=== PATIENT | female | born 1955 | race Hispanic/Latino ===

== ENCOUNTER 2016-10-31 04:00 | Emergency (ER) | payer BC, OTHER ==
[2016-10-31] MEDS ORDERED: MORPHINE IV ONE ×2 (04:46→07:19)
[2016-10-31] MEDS ORDERED: ZOFRAN IV ONE ×2 (04:47→07:19)
[2016-10-31 05:34] LABS: Bilirubin,Urine NEG (Negative); Blood,Urine NEG (Negative); Ketones,Urine NEG (Negative); Leukocyte Esterase,Urine TR (Negative); Mucus,Urine 2+ /HPF; Nitrite,Urine NEG (Negative); Protein,Urine <15 mg/dL mg/dL (Negative); Urobilinogen,Urine < 2.0 mg/dL (<2.0)
[2016-10-31 05:42] LABS: Basophils % (Auto) 0.1 % (0.0-1.8); Eosinophils % (Auto) 0.3 % (0.0-4.3); Hematocrit 46.2 % (30.3-42.9); Hemoglobin 15.3 gm/dl (10.1-14.3); Mean Corpuscular HGB Conc 33 % (30-34); Mean Corpuscular Hemoglobin 30 pg (28-32); Mean Corpuscular Volume 90 fl (79-97); Platelet Count 230 K/mm3 (140-440); Red Blood Count 5.12 M/mm3 (3.65-5.03); Red Cell Distribution Width 13.6 % (13.2-15.2); White Blood Count 14.5 K/mm3 (4.5-11.0)
[2016-10-31 05:43] LABS: Albumin 4.3 g/dL (3.9-5); Albumin/Globulin Ratio 1.3 %; BUN/Creatinine Ratio 22.72; Bilirubin,Total 0.5 mg/dL (0.1-1.2); Calcium 9.6 mg/dL (8.4-10.2); Chloride 102.2 mmol/L (98-107); Potassium 5.6 mmol/L (3.6-5.0); Total Protein 7.6 g/dL (6.3-8.2)
[2016-10-31] MEDS ORDERED: KIONEX PO ONE (07:01)
[2016-10-31] MEDS ORDERED: NACL 0.9% 1000 ML 1,000 ML IV ONE (07:01)
--- NOTE | 2016-10-31 07:35 | Emergency Department Report ---
HPI - General Chief Complaint: Abdominal Pain Time Seen by Provider: 10/31/16 06:50 - HPI HPI: The patient is a 60-year-old female who presents for evaluation of abdominal pain. The patient reports epigastric abdominal pain since 10 AM yesterday morning, nearly 24 hours prior to my evaluation. She states that her pain has been constant since onset, 8/10 in severity, cramping and at times pressure- like in quality, exacerbated with retching. She reports associated nausea and multiple episodes of nonbilious, nonbloody emesis. The patient denies fever, blood trauma to the abdomen, diarrhea, blood in the stool, dark tarry stool, dysuria, hematuria, flank pain, genital discharge, vaginal bleeding, inability to pass flatus. ED Past Medical Hx - Past Medical History Hx Hypertension: No Hx CVA: No Hx Heart Attack/AMI: No Hx Congestive Heart Failure: No Hx Diabetes: No Hx Deep Vein Thrombosis: No Hx Pulmonary Embolism: No Hx GERD: No Hx Liver Disease: No Hx Renal Disease: No Hx of Cancer: No Hx Sickle Cell Disease: No Hx Arthritis: Yes Hx Headaches / Migraines: No Hx Seizures: No Hx Kidney Stones: No Hx Psychiatric Treatment: No Hx Asthma: No Hx COPD: No Hx Tuberculosis: No Hx Dementia: No Hx HIV: No Additional medical history: MVP. Colonic inertia. SMALL BOWEL OBSTRUCTION - Surgical History Hx Internal Defibrillator: No Hx Cholecystectomy: Yes Additional Surgical History: Subtotal colectomy 2008. HYSTERECTOMY. SMALL BOWEL OBSTRUCTIONS SURGERY X 2. CERVICAL FUSION, KNEE Surgeries, Tonsilectomy, Colonoscopy - Social History Smoking Status: Former Smoker Substance Use Type: None - Medications Home Medications: Home Medications Medication Instructions Recorded Confirmed Last Taken Type Amitriptyline [Elavil] 40 gm PO DAILY 06/13/14 08/31/14 08/30/14 History Metoprolol [Lopressor TAB] 50 mg PO DAILY 06/13/14 08/31/14 08/30/14 History Simvastatin [Simvastatin] 40 mg PO QHS 07/16/14 08/31/14 07/15/14 History HYDROcodone/APAP 7.5-325 [[place] 1 each PO Q8HR PRN #20 tablet 10/31/16 Unknown Rx 7.5-325 mg TAB] Ondansetron [Zofran TAB] 4 mg PO Q8HR PRN #20 tablet 10/31/16 Unknown Rx Polyethylene Glycol/Elect 4,000 ml PO ONCE PRN #1 bottle 10/31/16 Unknown Rx [Golytely] ED Review of Systems ROS: Stated complaint: ABDOMINAL PAIN Other details as noted in HPI Constitutional: denies: fever ENT: denies: throat or neck pain Respiratory: denies: cough, shortness of breath Cardiovascular: denies: chest pain Endocrine: denies unexplained weight loss or gain Gastrointestinal: reports abdominal pain, nausea Genitourinary: denies: dysuria Musculoskeletal: denies: leg swelling Skin: denies: rash Neurological: denies: headache Hematological/Lymphatic: denies: easy bleeding or easy bruising Psych: denies sadness or hopelessness Physical Exam - Physical Exam Vital Signs: Vital Signs 10/31/16 10/31/16 10/31/16 04:00 04:12 04:16 Temperature 99.6 F 99.6 F Pulse Rate 102 H 102 H Respiratory 20 18 Rate Blood Pressure 117/77 117/77 Blood Pressure 117/77 [Left] O2 Sat by Pulse 98 98 Oximetry 10/31/16 04:37 Temperature Pulse Rate Respiratory 18 Rate Blood Pressure Blood Pressure [Left] O2 Sat by Pulse 98 Oximetry Physical Exam: General: well-nourished, well-developed, no acute distress Head: Normocephalic, atraumatic Eyes: normal sclera ENT: Mucous membranes are pale and dry Neck: trachea midline, neck supple, No neck stiffness, no cervical adenopathy Respiratory: Breath sounds equal bilaterally, no wheezing, rales, or rhonchi Cardio: S1 and S2 present, no murmurs, rubs, gallops, capillary refill is brisk Abdomen: No distention, Normoactive bowel sounds, soft abdomen, epigastric tenderness to palpation present, no rigidity, no guarding or rebound tenderness Chest WALL/Back: No tenderness to palpation of the chest wall, no CVA tenderness with percussion Musc: No pitting edema Skin: No rash Neuro: no facial drooping, normal speech Psych: Normal affect ED Course Vital Signs 10/31/16 10/31/16 10/31/16 04:00 04:12 04:16 Temperature 99.6 F 99.6 F Pulse Rate 102 H 102 H Respiratory 20 18 Rate Blood Pressure 117/77 117/77 Blood Pressure 117/77 [Left] O2 Sat by Pulse 98 98 Oximetry 10/31/16 04:37 Temperature Pulse Rate Respiratory 18 Rate Blood Pressure Blood Pressure [Left] O2 Sat by Pulse 98 Oximetry ED Medical Decision Making - Lab Data Result diagrams: 10/31/16 04:51 10/31/16 04:51 - Medical Decision Making The patient was seen and examined by myself. The patient is placed on a community recreation coordinator and continuous pulse ox. On initial evaluation, the patient was found to be in no distress. Evaluation orders were placed. The patient is given 1 L normal saline fluid bolus for treatment of dehydration, IV Zofran for nausea, and IV morphine for her pain. Lab results reveal elevated RBC, hemoglobin, and hematocrit, consistent with hemoconcentration and exam findings of dehydration, and otherwise labs were grossly unrevealing. CT scan abdomen and pelvis with IV and oral contrast exhibits chronically dilated sigmoid colon, also present on comparison CT scan over 2 years ago. Additionally the CT scan today was negative for small bowel dilation, ascites, bowel perforation, appendicitis, or abscess. The patient was reevaluated and reported that her symptoms were markedly improved and nausea and vomiting were resolved. She states that she feels back to her normal baseline and would like to be discharged home. The patient's tachycardia has also resolved and heart rate is now 90. The patient is stable for discharge with outpatient follow-up. The patient is given follow-up and return instructions. The patient expressed understanding and agreed with the plan. The patient is discharged in stable condition. Critical care attestation.: If time is entered above; I have spent that time in minutes in the direct care of this critically ill patient, excluding procedure time. ED Disposition Clinical Impression: Abdominal pain, acute, epigastric, Dehydration, mild, Nausea and vomiting in adult, Acute hyperkalemia Disposition: - TO HOME OR SELFCARE Is pt being admited?: No Does the pt Need Aspirin: No Condition: Stable Instructions: Abdominal Pain (ED), Acute Nausea and Vomiting (ED), Dehydration (ED) Prescriptions: HYDROcodone/APAP 7.5-325 [[place] 7.5-325 mg TAB] 1 each PO Q8HR PRN #20 tablet PRN Reason: Pain Ondansetron [Zofran TAB] 4 mg PO Q8HR PRN #20 tablet PRN Reason: Nausea Polyethylene Glycol/Elect [Golytely] 4,000 ml PO ONCE PRN #1 bottle PRN Reason: Constipation Referrals: KIERRA CLEARY MD [Primary Care Provider] - 3-5 Days RAFA MART MD [Staff Physician] - 3-5 Days Time of Disposition: 12:59
[2016-10-31 08:48] VITALS: BP 117/70
[2016-10-31] MEDS ORDERED: NACL ONE (10:25)
[2016-10-31] MEDS ORDERED: KIONEX ONE (11:13)
--- NOTE | 2016-10-31 11:18 | Cat Scan Report ---
CT scan of abdomen and pelvis with IV contrast: Compared to 08/31/14. History: Abdominal pain. Findings: Normal lung bases. No pleural or pericardial effusion. Normal liver spleen pancreas. Patient status post cholecystectomy. Dilated common bile duct measuring 1.1 cm. No intrahepatic duct dilatation. Normal adrenals kidneys and bladder. No free intraperitoneal fluid or air. No evidence of adenopathy. Atherosclerotic abdominal aorta without aneurysm. Fecal impaction in rectum with dilated sigmoid with air. No evidence of appendicitis or diverticulitis. Impression: No significant interval change in dilated sigmoid compared to previous study suggestive of chronic changes. No dilatation of small bowel. Fecal impaction in rectum.
== END 2016-10-31 14:27 | disposition home or self-care (01) ==
LOC: ED 04:00
DX: E87.5 Hyperkalemia (principal); E86.0 Dehydration; R11.2 Nausea with vomiting, unspecified; R10.13 Epigastric pain; M19.90 Unspecified osteoarthritis, unspecified site; Z90.49 Acquired absence of other specified parts of digestive tract; Z90.710 Acquired absence of both cervix and uterus; Z87.891 Personal history of nicotine dependence
CPT/HCPCS: 36415; 74177; 80053; 81001; 83690; 85025; 96361; 96374; 96375; 96376; 99285; J2270; J2405; J7030; Q9967

== ENCOUNTER 2017-01-03 13:53 | Emergency (ER) | payer OTHER ==
[2017-01-03 14:38] LABS: Basophils % (Auto) 0.6 % (0.0-1.8); Eosinophils % (Auto) 2.6 % (0.0-4.3); Hematocrit 41.4 % (30.3-42.9); Hemoglobin 13.6 gm/dl (10.1-14.3); Mean Corpuscular HGB Conc 33 % (30-34); Mean Corpuscular Hemoglobin 29 pg (28-32); Mean Corpuscular Volume 90 fl (79-97); Platelet Count 228 K/mm3 (140-440); Red Blood Count 4.62 M/mm3 (3.65-5.03); Red Cell Distribution Width 13.5 % (13.2-15.2); White Blood Count 7.9 K/mm3 (4.5-11.0)
[2017-01-03 15:18] LABS: Anion Gap 19 mmol/L; BUN/Creatinine Ratio 17.77; Blood Urea Nitrogen 16 mg/dL (7-17); Calcium 9.6 mg/dL (8.4-10.2); Carbon Dioxide 25 mmol/L (22-30); Glucose 92 mg/dL (65-100); Potassium 5.3 mmol/L (3.6-5.0); Sodium 139 mmol/L (137-145)
--- NOTE | 2017-01-03 20:08 | Emergency Department Report ---
HPI - General Chief Complaint: Dizziness Time Seen by Provider: 01/03/17 19:49 - HPI HPI: Room 7 The pt is a 61 y/o F p/w a cc of hypotension, syncope. The pt states she was taken off of her BP meds one year ago 2/2 hypotension. The pt states shes noticed her blood pressure has been running low intermittently since 12/06/16. The pt states approx 3 weeks ago she had a syncopal episode twice in the same day. Pt states she didnt go to the hospital after the events. The pt also noticed SOB and COOPER with 5 steps since YD. The pt also c/o lightheadedness upon standing YD. Pt denies CP but admits to nausea and diarrhea ED Past Medical Hx - Past Medical History Hx Arthritis: Yes Additional medical history: MVP. Colonic inertia. SMALL BOWEL OBSTRUCTION - Surgical History Hx Cholecystectomy: Yes Additional Surgical History: Subtotal colectomy 2007. HYSTERECTOMY. SMALL BOWEL OBSTRUCTIONS SURGERY X 2. CERVICAL FUSION, KNEE Surgeries, Tonsilectomy, Colonoscopy - Family History Family history: no significant - Social History Smoking Status: Former Smoker (none x 10 years) Substance Use Type: None (denies illicit drug use), Prescribed - Medications Home Medications: Home Medications Medication Instructions Recorded Confirmed Last Taken Type Amitriptyline [Elavil] 40 gm PO DAILY 06/13/14 08/31/14 08/30/14 History Metoprolol [Lopressor TAB] 50 mg PO DAILY 06/13/14 08/31/14 08/30/14 History Simvastatin [Simvastatin] 40 mg PO QHS 07/16/14 08/31/14 07/15/14 History HYDROcodone/APAP 7.5-325 [[place] 1 each PO Q8HR PRN #20 tablet 10/31/16 Unknown Rx 7.5-325 mg TAB] Ondansetron [Zofran TAB] 4 mg PO Q8HR PRN #20 tablet 10/31/16 Unknown Rx Polyethylene Glycol/Elect 4,000 ml PO ONCE PRN #1 bottle 10/31/16 Unknown Rx [Golytely] Butalb/Acetamin/Caff 50-325-40 1 tab PO Q8HR PRN #10 tablet 01/03/17 Unknown Rx [Fioricet] Meclizine [Antivert] 25 mg PO TID PRN #20 tablet 01/03/17 Unknown Rx ED Review of Systems ROS: Stated complaint: LOW BP/SOB/DIZZINESS Other details as noted in HPI Comment: All other systems reviewed and negative Constitutional: denies: chills, fever Eyes: denies: eye pain, eye discharge, vision change ENT: denies: ear pain, throat pain Respiratory: shortness of breath Cardiovascular: denies: chest pain Endocrine: no symptoms reported Gastrointestinal: nausea, diarrhea. denies: vomiting Genitourinary: denies: urgency, dysuria, discharge Musculoskeletal: denies: back pain, joint swelling, arthralgia Skin: denies: rash, lesions Neurological: other (lightheaded) Psychiatric: denies: anxiety, depression Hematological/Lymphatic: denies: easy bleeding, easy bruising Physical Exam - Physical Exam Vital Signs: Vital Signs 01/03/17 01/03/17 14:08 18:18 Temperature 98.3 F Pulse Rate 125 H 84 Respiratory 18 18 Rate Blood Pressure 154/109 148/84 O2 Sat by Pulse 100 Oximetry Physical Exam: GEN: WD, WN F lying on stretcher not appearing to be in acute distress. HEENT: normocephalic, atraumatic PULM: CTA B CV: rrr, no m/r/g ABD: s, nt, nd Neuro: GCS 15. CN 2-12 GI. No drift. No dysmetria noted c finger to nose bilaterally Ext: no deformity ED Course Vital Signs 01/03/17 01/03/17 14:08 18:18 Temperature 98.3 F Pulse Rate 125 H 84 Respiratory 18 18 Rate Blood Pressure 154/109 148/84 O2 Sat by Pulse 100 Oximetry - Reevaluation(s) Reevaluation #1: 01/03/17 22:15 results d/w pt. ED Medical Decision Making - Lab Data Result diagrams: 01/03/17 14:16 01/03/17 14:16 Laboratory Tests 01/03/17 01/03/17 01/03/17 14:16 14:16 14:16 WBC 7.9 RBC 4.62 Hgb 13.6 Hct 41.4 MCV 90 MCH 29 MCHC 33 RDW 13.5 Plt Count 228 Lymph % (Auto) 28.6 [place] % (Auto) 8.4 H Eos % (Auto) 2.6 Baso % (Auto) 0.6 Lymph # 2.3 [place] # 0.7 Eos # 0.2 Baso # 0.0 Seg Neutrophils % 59.8 Seg Neutrophils # 4.7 Sodium 139 Potassium 5.3 H Chloride 100.0 Carbon Dioxide 25 Anion Gap 19 BUN 16 Creatinine 0.9 Estimated GFR > 60 BUN/Creatinine Ratio 17.77 Glucose 92 Calcium 9.6 Total Creatine Kinase Troponin T < 0.010 NT-Pro-B Natriuret Pep 31.95 01/03/17 20:03 WBC RBC Hgb Hct MCV MCH MCHC RDW Plt Count Lymph % (Auto) [place] % (Auto) Eos % (Auto) Baso % (Auto) Lymph # [place] # Eos # Baso # Seg Neutrophils % Seg Neutrophils # Sodium Potassium Chloride Carbon Dioxide Anion Gap BUN Creatinine Estimated GFR BUN/Creatinine Ratio Glucose Calcium Total Creatine Kinase 45 Troponin T NT-Pro-B Natriuret Pep - EKG Data -: EKG Interpreted by Me EKG shows normal: sinus rhythm Rate: tachycardia (107 bpm) - EKG Data When compared to previous EKG there are: previous EKG unavailable Interpretation: normal EKG Critical care attestation.: If time is entered above; I have spent that time in minutes in the direct care of this critically ill patient, excluding procedure time. ED Disposition Clinical Impression: Lightheadedness Disposition: DC-01 TO HOME OR SELFCARE Is pt being admited?: No Does the pt Need Aspirin: No Condition: Stable Instructions: Dizziness (ED), Lightheadedness (ED) Prescriptions: Butalb/Acetamin/Caff 50-325-40 [Fioricet] 1 tab PO Q8HR PRN #10 tablet PRN Reason: Headache Meclizine [Antivert] 25 mg PO TID PRN #20 tablet PRN Reason: Vertigo Referrals: PRIMARY CARE, [Primary Care Provider] - [facility] Time of Disposition: 22:18
--- NOTE | 2017-01-03 21:49 | Cat Scan Report ---
FINAL REPORT EXAM: CT HEAD/BRAIN WO CON HISTORY: syncope TECHNIQUE: Noncontrast CT axial images of the brain. PRIORS: None. FINDINGS: No parenchymal mass, mass effect, hemorrhage, midline shift or hydrocephalus. No evidence of acute cortical infarct. No abnormal, extra-axial fluid or air collection. Osseous calvarium grossly intact. Marginal mucosal thickening in the right inferior maxillary sinus. IMPRESSION: 1. No acute intracranial findings.
--- NOTE | 2017-01-03 21:53 | Cat Scan Report ---
FINAL REPORT EXAM: CT ANGIO CHEST HISTORY: sob, syncope TECHNIQUE: Spiral CTA of the chest after the uneventful administration of IV contrast. Multiplanar reformations. 100 mL Omnipaque IV. PRIORS: None. FINDINGS: Chest: The main and bilateral proximal pulmonary arteries are normally opacified without endoluminal filling defects. No apparent aneurysm, pseudoaneurysm or aortic dissection. No significant lymph node enlargement or axillary adenopathy. Lungs show no discrete parenchymal mass, focal consolidation or pleural effusions. No apparent pneumothorax. A few, small hypodensities, with peripheral enhancement scattered in the liver, largest in left lobe measuring approximately 1.8 cm may represent hemangiomata. Possible subcentimeter, left renal cyst, too small to adequately characterize. Remainder of visualized abdominal parenchyma grossly unremarkable. Gallbladder surgically absent. Postsurgical changes in the cervical spine. IMPRESSION: 1. No evidence of large vessel or central pulmonary emboli. No acute consolidation. 2. Hepatic hypodensities possibly representing cysts versus hemangiomata, but nonspecific. Correlation with liver ultrasound may be confirmatory, as clinically indicated.
[2017-01-03 23:01] VITALS: BP 142/92
== END 2017-01-03 22:50 | disposition home or self-care (01) ==
LOC: ED 13:53
DX: R42 Dizziness and giddiness (principal); M19.90 Unspecified osteoarthritis, unspecified site; Z87.891 Personal history of nicotine dependence; Z88.2 Allergy status to sulfonamides; Z88.8 Allergy status to other drugs, medicaments and biological substances
CPT/HCPCS: 36415; 70450; 71275; 80048; 82550; 83880; 84484; 85025; 93005; 93010; 99284; Q9967